=== PATIENT | male | born 1980 | race Hispanic/Latino ===

== ENCOUNTER 2019-07-24 17:46 | Emergency (ER) | payer SELFPAY ==
[2019-07-24 19:04] LABS: RAPID GROUP A STREP NEGATIVE (NEGATIVE)
== END 2019-07-24 19:15 | disposition home or self-care (01) ==
LOC: EDH 17:46
DX: J06.9 Acute upper respiratory infection, unspecified (principal); Z90.49 Acquired absence of other specified parts of digestive tract
CPT/HCPCS: 87804; 87880

== ENCOUNTER 2019-07-25 12:36 | Emergency (ER) | payer SELFPAY ==
[2019-07-25 13:08] LABS: BASOPHILS % (AUTO) 0.3 % (0.0-5.0); EOSINOPHILS % (AUTO) 5.1 % (0.0-8.0); HEMATOCRIT 47.1 % (42-54); LYMPHOCYTES % (AUTO) 12.4 % (21.0-51.0); MEAN CORPUSCULAR HEMOGLOBIN 31.6 pg (27.0-33.0); MEAN CORPUSCULAR HGB CONC 34.7 g/dL (32.0-36.0); MEAN CORPUSCULAR VOLUME 91.1 fL (79-99); MONOCYTES % (AUTO) 9.4 % (3.0-13.0); NEUTROPHILS % (AUTO) 72.8 % (40.0-77.0); NUCLEATED RED BLOOD CELLS 0.1 % (0.0-0.19); PLATELET COUNT (AUTO) 136 K/uL (130-400); RED BLOOD CELL COUNT(AUTO) 5.17 MIL/uL (4.50-6.20); RED CELL DISTRIBUTION WIDTH 12.5 % (11.0-15.5); WHITE BLOOD COUNT (AUTO) 5.2 K/uL (4.8-10.8)
[2019-07-25 13:14] LABS: CREATININE 1.2 mg/dL (0.5-1.5); POTASSIUM 3.7 mmol/L (3.5-5.1)
[2019-07-25 13:19] LABS: ALBUMIN 3.8 g/dL (3.5-5.0); BILIRUBIN,TOTAL 0.6 mg/dL (0.2-1.0); TOTAL PROTEIN, SERUM 8.8 g/dL (6.0-8.3)
== END 2019-07-25 13:44 | disposition home or self-care (01) ==
LOC: EDH 12:36
DX: J02.9 Acute pharyngitis, unspecified (principal); R50.9 Fever, unspecified; R51 Headache; R21 Rash and other nonspecific skin eruption; Z90.49 Acquired absence of other specified parts of digestive tract
CPT/HCPCS: 36415; 80053; 85025; 86757

== ENCOUNTER 2025-09-08 12:01 | Emergency (ER) | payer SELFPAY ==
[~2025-09-08] VITALS: Ht 165.1 cm; Wt 99.3 kg
[2025-09-08 13:01] LABS: IMMATURE GRANULOCYTE ABSOLUTE 0.01 K/uL (0-1); NUCLEATED RED BLOOD CELLS 0.0 % (0.0-0.19); PLATELET COUNT (AUTO) 209 K/uL (130-400); RED BLOOD CELL COUNT(AUTO) 5.06 MIL/uL (4.50-6.20); RED CELL DISTRIBUTION WIDTH 11.9 % (11.0-15.5); WHITE BLOOD COUNT (AUTO) 3.2 K/uL (4.8-10.8)
[2025-09-08 13:11] LABS: CREATININE 0.9 mg/dL (0.5-1.3); GLOMERULAR FILTR. RATE CALC 107.0 mL/min (>90); GLUCOSE,RANDOM 109.0 mg/dL (70-105); SODIUM SERUM 140.0 mmol/L (136-145); UREA NITROGEN, BLOOD 14.0 mg/dL (7-18)
[2025-09-08 13:22] LABS: APPEARANCE,URINE CLEAR (CLEAR); GLUCOSE, URINE (UA) NEGATIVE (NEGATIVE); LEUKOCYTE ESTERASE ,URINE NEGATIVE Leu/uL (NEGATIVE); NITRATE,URINE NEGATIVE (NEGATIVE); OCCULT BLOOD,URINE +- (TRACE) (NEGATIVE)
[2025-09-08 13:29] LABS: ADD UA MICROSCOPIC NO
[2025-09-08] MEDS ORDERED: KETO10TA2 PO (14:58)
[2025-09-08] MEDS ORDERED: CYCL10TA16 PO (14:58)
--- NOTE | 2025-09-08 15:01 | ERN ---
General Chief Complaint: Multiple Complaints Stated Complaint: MULTIPLE COMPLAINTS Time Seen by MD: 12:02 Time Seen by Midlevel: 12:02 Source: patient History of Present Illness Initial Comments Patient is a 45-year-old male with no significant past medical history presenting to the emergency department for evaluation of bilateral upper extremity numbness/pain that has been ongoing for several months but progressively worsened. The patient has been seen by his primary care doctor for this issue and has been told in his work-related. He denies any trauma to his head. Denies any previous cervical injury or history of bulging discs. Allergies: Coded Allergies: No Known Drug Allergies (Unverified Allergy, Unknown, 07/24/19) Past Medical History Past Medical History: No Pertinent History Past Surgical History: Appendectomy ROS Dictation CONSTITUTIONAL: Negative except for HPI HEAD/FACE: Negative except for HPI EENT: Negative except for HPI RESPIRATORY: Negative except for HPI GASTROINTESTINAL/ABDOMINAL: Negative except for HPI GENITOURINARY: Negative except for HPI MUSCULOSKELETAL: Negative except for HPI INTEGUMENTARY: Negative except for HPI NEUROLOGICAL/PSYCH: Negative except for HPI HEMATOLOGIC/LYMPHATIC: Negative except for HPI All Systems Negative, Except as noted above. 13 point review of systems assessed and all negative except for above. Physical Exam Physical Exam Dictation Vital Signs reviewed General Appearance: Alert, oriented x 3, no acute distress, well developed, nourished. Head and Face: non-traumatic. Eyes: PERRL, pink conjunctivas, eyelid no trauma, anterior chamber with arcus senilis. Ears: Pinnas intact and no signs of trauma or erythema ear canals clear and no discharge TM no erythema Nose: No discharge, no bleeding. Oropharynx: Mouth normal, tongue pink, pharynx clear,no erythema, tonsils no exudates, no abscesses noted, mucous membrane moist Neck: Supple, non-tender, no thyromegaly, no masses, no JVD, no bruits Breast:Deferred Chest:No tenderness, no crepitus, no paradoxical movement, no retractions Lungs:Clear, well-ventilated, symmetric, no rales, no wheezing, no rhonchi, no stridor, good breath sounds bilaterally Heart: Regular rate, regular rhythm, no murmur, no gallops Vascular: no peripheral edema, Abdomen: Soft, positive bowel sounds, nondistended, no guarding, nontender, no rebound, no masses no hepatomegaly, no splenomegaly, no Doan's sign, no hernias. Rectal: Deferred Genital: Deferred Neurological: Normal speech, motor function intact, sensory function intact Musculoskeletal: Neck nontender, full range of motion, back nontender, full range of motion, Extremities: nontender, full range of motion Skin: Color pink, dry, no turgor, no rash, no lacerations, no abrasions, no contusions. Lymphatic: Deferred Results Laboratory and Microbiology Lab and Micro Result Laboratory Tests Test 09/08/25 12:51 09/08/25 12:52 Urine Color YELLOW (YELLOW) Urine Appearance CLEAR (CLEAR) Urine pH 5.5 (5.0-8.0) Urine Specific Craig 1.023 (1.001-1.031) Urine Protein NEGATIVE mg/dL (NEGATIVE) Urine Glucose (UA) NEGATIVE mg/dL (NEGATIVE) Urine Ketones NEGATIVE mg/dL (NEGATIVE) Urine Occult Blood +- (TRACE) (NEGATIVE) H Urine Nitrate NEGATIVE (NEGATIVE) Urine Bilirubin NEGATIVE mg/dL (NEGATIVE) Urine Urobilinogen 0.2 mg/dL (0.2-1.0) Urine Leukocyte Esterase NEGATIVE Cameron/uL White Blood Count 3.2 K/uL (4.8-10.8) L Red Blood Count 5.06 MIL/uL (4.50-6.20) Hemoglobin 15.6 g/dL (14.0-18.0) Hematocrit 45.5 % (42-54) Mean Corpuscular Volume 89.9 fL (79-99) Mean Corpuscular Hemoglobin 30.8 pg (27.0-33.0) Mean Corpuscular Hemoglobin Concent 34.3 g/dL (32.0-36.0) Red Cell Distribution Width 11.9 % (11.0-15.5) Platelet Count 209 K/uL (130-400) Mean Platelet Volume 11.7 fL (7.5-10.5) H Immature Granulocyte % (Auto) 0.3 % (0-1) Neutrophils (%) (Auto) 41.9 % (40.0-77.0) Lymphocytes (%) (Auto) 42.2 % (21.0-51.0) Monocytes (%) (Auto) 10.3 % (3.0-13.0) Eosinophils (%) (Auto) 4.4 % (0.0-8.0) Basophils (%) (Auto) 0.9 % (0.0-5.0) Neutrophils # (Auto) 1.3 K/uL (1.8-7.7) L Lymphocytes # (Auto) 1.4 K/uL (1.0-4.8) Monocytes # (Auto) 0.3 K/uL (0.1-1.0) Eosinophils # (Auto) 0.14 K/uL (0.00-0.70) Basophils # (Auto) 0.03 K/uL (0.00-0.20) Absolute Immature Granulocyte (auto 0.01 K/uL (0-1) Nucleated Red Blood Cells 0.0 % (0.0-0.19) Sodium Level 140 mmol/L (136-145) Potassium Level 3.9 mmol/L (3.5-5.1) Chloride Level 103 mmol/L (101-111) Carbon Dioxide Level 28 mmol/L (21-32) Blood Urea Nitrogen 14 mg/dL (7-18) Creatinine 0.9 mg/dL (0.5-1.3) Glomerular Filtration Rate Calc 107 mL/min (>90) Random Glucose 109 mg/dL (70-105) H Total Calcium 8.9 mg/dL (8.5-10.1) Labs Reviewed?: Yes MDM MDM: Patient is a 45-year-old male with no significant past medical history presenting to the emergency department for evaluation of bilateral upper extremity numbness/pain that has been ongoing for several months but progressively worsened. The patient has been seen by his primary care doctor for this issue and has been told in his work-related. He denies any trauma to his head. Denies any previous cervical injury or history of bulging discs. On physical examination patient is in no acute distress. He has no neurological findings. His GCS is 15. NIH of 0. It appears his symptoms are chronic. No acute changes. Basic labs were obtained to rule out any electrolyte derangements or dehydration. However, CBC and chemistries unremarkable. Urinalysis shows no evidence of infection. I did offer a CT scan of the head given his persistent numbness but the patient refused. Discussed lab findings with the patient and the need to follow up outpatient for further evaluation. Patient agrees with this plan but wanted pain medication and something to help with his numbness. The patient was given Norflex and Toradol and will be discharged home with supportive management. Differential diagnosis: Paresthesias, dehydration, electrolyte abnormalities, cervical radiculopathy There are no social concerns with this patient. Prescription drug management Prescriptions will include: Toradol and Norflex Medical management and examination interpretation discussions were had by me with other qualified healthcare professionals as indicated for the patient's care. ED Course Orders Procedure Category Date Status Time Cbc With Differential LAB 09/08/25 Complete 12:33 Basic Metabolic Panel LAB 09/08/25 Complete 12:33 Urinalysis Profile LAB 09/08/25 Complete 12:33 Vital Signs Date Time Temp Pulse Resp B/P (MAP) Pulse Ox O2 Delivery O2 Flow Rate FiO2 09/08/25 13:29 98.2 78 18 139/83 Room Air* 0 21 09/08/25 12:02 98.2 78 18 139/83 98 Room Air 0 DX & DISP Disposition: Discharge Departure Impression: Primary Impression: Paresthesias Condition: Stable Scripts Cyclobenzaprine HCl (Flexeril) 10 Mg Tab 10 MG PO BID for muscle sstiffness, #14 TAB 0 Refills Prov: JAYLEN LINDER 09/08/25 Ketorolac Tromethamine (Ketorolac Tromethamine) 10 Mg Tablet 1 TAB PO TID for pain for 5 Days, #15 TAB 0 Refills Prov: JAYLEN LINDER 09/08/25 Referrals: SELF,REFERRAL (PCP) Time of Disposition: 14:57 I have reviewed the case, and I agree with, Diagnosis and Plan I performed the substantive portion of the visit. I have reviewed and personally made and approve the management plan that is documented in the note by myself or the JOSE. I acknowledge for responsibility for the patient's management plan. JAYLEN LINDER Sep 08, 2025 15:01
[2025-09-08] MEDS: ORPHENADRINE 60MG/2ML IM SCH (15:07)
[2025-09-08 15:23] VITALS: BP 121/76; PULSE 70; RESP 12; TEMP 98; O2SAT 98
== END 2025-09-08 15:28 | disposition home or self-care (01) ==
LOC: EDH 12:01
DX: R20.2 Paresthesia of skin (principal); Z90.49 Acquired absence of other specified parts of digestive tract
CPT/HCPCS: 99284; 80048; 85025; 81003; 36415; 96372 ×2; J1885; J2360